=== PATIENT | female | born 1940 | race Caucasian/White ===

== ENCOUNTER 2019-01-13 07:37 | Day surgery (SDC) | payer MEDICARE, OTHER ==
[2018-11-02 12:20] VITALS: BMI 16.9
[~2019-01-13 07:37] MED LIST: HEPARIN-NS 5,000 UNITS/500 ML 0 UNIT/0 ML BAG IV ONE; ceFAZolin 1 gm in NS 1 GM/100 ML BAG IVPB ONE
[2019-01-13] MEDS ORDERED: Propofol 10 mg/ml Inj (20 ML) ONE (08:04)
[2019-01-13] MEDS ORDERED: Lidocaine Hydrochloride 5 ML INJ ONE (08:10)
[2019-01-13] MEDS ORDERED: Phenylephrine 10 mg/ml Inj ONE (08:11)
--- NOTE | 2019-01-13 10:33 | PCM.SURG1 ---
Surgeon's Initial Post Op Note - Surgeon's Notes Surgeon: [email or web address] Legal Clerk: 0 Type of Anesthesia: IV Sedation Anesthesia Administered By: [email or web address] Pre-Operative Diagnosis: renal failure, immature fistula left Operative Findings: good sized vein with good flow Post-Operative Diagnosis: same Operation Performed: revision avf /basilic vein treanposition left Specimen/Specimens Removed: 0 Estimated Blood Loss: EBL {In ML}: 25 Blood Products Given: N/A Drains Used: No Drains Post-Op Condition: Good Date of Surgery/Procedure: 01/13/19 Time of Surgery/Procedure: 10:33
[2019-01-13] MEDS ORDERED: Oxycodone/Acetaminophen 5/325 mg Tab PO PRN (10:34)
[2019-01-13] MEDS ORDERED: HYDROmorphone 0.5 mg/0.5 ml ISec IVP PRN (10:40)
[2019-01-13 12:44] VITALS: TEMP 97.5
[2019-01-13 14:04] VITALS: BP 100/50; PULSE 70; RESP 20; O2SAT 95
--- NOTE | 2019-01-13 20:14 | OP ---
PROCEDURE DATE: 01/13/2019 PREOPERATIVE DIAGNOSES: Renal failure, immature fistula, left arm. POSTOPERATIVE DIAGNOSES: Renal failure, immature fistula, left arm. PROCEDURE: Revision of arteriovenous fistula, left arm with creation of basilic vein transposition fistula. SURGEON: Ramiro Romero Jr., MD. INTERNATIONAL SALES REPRESENTATIVE: None. TYPE OF ANESTHESIA: General anesthesia. ANESTHESIA ADMINISTERED BY: Marcos Castellanos MD. INDICATIONS: The patient is an elderly woman with multiple comorbidities presently dialyzed by means of a catheter. She had a fistula created in the left arm approximately 6 weeks ago, which is too deep for access. OPERATIVE FINDINGS: The mobilized vein was of good size and caliber measuring between 6 and 8 mm in diameter. After completely dissecting it free from the surrounding tissues, we then mobilized it to the subcutaneous position, closed the skin on top of this. There was excellent flow through the fistula. There was still flow to the wrist. The wounds were then closed with nylon sutures in a layered closure and with skin ashli on the skin. Blood loss was less than 25 mL. OPERATION CARRIED OUT: Revision of arteriovenous fistula, left arm with creation of basilic vein transposition fistula. Ramiro Romero Jr., MD cc: Dr. Andreina Hernandez.
== END 2019-01-13 13:45 | disposition home or self-care (01) ==
LOC: C.SDS 07:37
PROVIDERS: ATTEND Surgery Vascular Surgery
DX: T82.9XXA Unspecified complication of cardiac and vascular prosthetic device, implant and graft, initial encounter (principal); N18.6 End stage renal disease; N19 Unspecified kidney failure
CPT/HCPCS: 37607; J0690; J1170; J2370; J2704; J3010; J7040